=== PATIENT | female | born 1955 | race Hispanic/Latino ===

== ENCOUNTER 2018-08-01 07:22 | Day surgery (SDC) | payer BC ==
[2018-07-25 09:03] VITALS: BMI 30.1
[2018-08-01] MEDS ORDERED: Simethicone 40 mg/0.6 ml Liquid (30 ml) ONE (08:47)
[2018-08-01] MEDS ORDERED: Propofol 10 mg/ml Inj (20 ML) ONE (09:15)
[2018-08-01] MEDS ORDERED: Sodium Chloride 0.9% 1,000 ML IV SCH (09:15)
[2018-08-01 09:42] VITALS: RESP 16
[2018-08-01 10:17] VITALS: BP 131/77; PULSE 60; TEMP 97.7; O2SAT 100
== END 2018-08-01 13:03 | disposition home or self-care (01) ==
LOC: ENDO 07:22
PROVIDERS: ATTEND Internal Medicine Gastroenterology
DX: K21.9 Gastro-esophageal reflux disease without esophagitis (principal); K29.50 Unspecified chronic gastritis without bleeding; K44.9 Diaphragmatic hernia without obstruction or gangrene; K31.9 Disease of stomach and duodenum, unspecified
CPT/HCPCS: 43239; 88305; 88342; J2001; J2704; J7030; J7040

== ENCOUNTER 2018-10-14 15:05 | Outpatient (CLI) | payer BC | END 2018-10-14 15:06 | disposition home or self-care (01) | LOC: RAD 15:05 ==